=== PATIENT | male | born 1985 | race African-American/Black ===

== ENCOUNTER 2017-05-18 17:52 | Emergency (ER) | payer BC ==
[~2017-05-18] VITALS: Ht 182.9 cm; Wt 91.5 kg
[2017-05-18 18:02] VITALS: Ht 182.9 cm; Wt 91.5 kg
--- NOTE | 2017-05-18 18:38 | ERD ---
ER Documentation Chief Complaint Date/Time DATE: 05/18/17 TIME: 18:35 Chief Complaint LEFT SHOULDER PAIN DUE TO STUNT ACCIDENT, DIRECT FALL ONTO LATERAL SIDE HPI This a 32-year-old male who presents emergency department today complaining of left shoulder pain that started 3 days ago. Patient states that he "tweaked his shoulder at that time. 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 States that today he went back to finish the sequence and he went to block someone put his arm out when he felt pain. States he has a previous history of injury to the shoulder and landing on his shoulder. States he took ibuprofen for the pain but has pain with movement. States he does not have a primary care doctor.States he would like an MRI. ROS All systems reviewed and are negative except as per history of present illness. Medications Home Meds Active Scripts Naproxen* (Naprosyn*) 500 Mg Tablet, 500 MG PO BID Y for PAIN AND/OR INFLAMMATION, #30 TAB Prov:SUNITA QURESHI PA-C 05/18/17 Allergies Allergies: Coded Allergies: No Known Allergy (Unverified , 05/18/17) Physical Exam Vitals Vital Signs Date Time Temp Pulse Resp B/P Pulse Ox O2 Delivery O2 Flow Rate FiO2 05/18/17 18:02 98.9 79 20 129/85 98 Physical Exam Const: NAD Head: Atraumatic Eyes: Normal Conjunctiva ENT: Normal External Ears, Nose and Mouth. Neck: Full range of motion..~ No meningismus. Resp: Clear to auscultation bilaterally Cardio: Regular rate and rhythm, no murmurs Abd: Soft, non tender, non distended. Normal bowel sounds Skin: No petechiae or rashes Back: No midline or flank tenderness Ext: Left shoulder with no obvious deformity. No effusion. No ecchymosis. Diffusely tender to palpation. Full active range of motion at elbow and wrist. Nontender humerus. Non tender clavicle. Pulses 2+. Distal neurovascularly intact. Neur: Awake and alert Psych: Normal Mood and Affect Results 24 hrs DIAGNOSTIC IMAGING REPORT Patient: TERRELL TAYLOR : 1985 Age: 32 Sex: M MR #: [id number] DOS: 05/18/17 0000 Ordering MD: SUNITA QURESHI PA-C Location: [facility] Room/Bed: PROCEDURE: XR left shoulder. CLINICAL INDICATION: Trauma, fall, pain TECHNIQUE: 3 views of the left shoulder were performed. COMPARISON: None. FINDINGS: There is normal osseous mineralization and alignment. No acute fracture or osseous lesion is identified. There are normal joints without evidence of arthritis or dislocation. The soft tissues are unremarkable. IMPRESSION: Unremarkable left shoulder. RPTAT: HJES .Chris Muñoz MD, MD Date Time Electronically viewed and signed by .Chris Muñoz MD, on 05/18/2017 20:00 .S/ CC: SUNITA QURESHI PA-C Procedures/MDM This a 32-year-old male presents the emergency department today complaining of left shoulder pain that started 2 days ago. 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 Pain has persisted today and patient states that he would like an MRI and called the hospital to find out if we did do these MRIs and was told that we did. I did explain her procedures here in the emergency department and explained to him that I would be happy to take an x-ray for him but that he may follow-up with an rheumatology specialist for further evaluation and management should he need an MRI. Patient was understanding and agreed to have the x-rays done. Per the radiology report images of the left shoulder are unremarkable. Low suspicion for acute fracture dislocation. It explained to the patient that he has any problem with his labrum or rotator cuff pathology that he would need further evaluation by an rheumatology specialist. Patient is given a list of referral information. Patient was already in a sling and he declined pain medication here in the emergency department. He will be given a prescription for Naprosyn. I did give him a copy of his reports and gave him referral information for rheumatology specialist. Patient does have a PPO. At this time the patient is stable for discharge and outpatient management. Patient should follow up with their PCP in the next 1-2 days. They may return to the emergency department sooner for any persistent or worsening of symptoms. Patient understood and agreed with the plan. Departure Diagnosis: Primary Impression: Shoulder injury Encounter type: initial encounter Laterality: left Qualified Code: S49.92XA - Injury of left shoulder, initial encounter Condition: SUNITA Zuñiga PA-C May 18, 2017 18:38
--- NOTE | 2017-05-18 20:00 | RADRPT ---
PROCEDURE: XR left shoulder. CLINICAL INDICATION: Trauma, fall, pain TECHNIQUE: 3 views of the left shoulder were performed. COMPARISON: None. FINDINGS: There is normal osseous mineralization and alignment. No acute fracture or osseous lesion is identified. There are normal joints without evidence of arthritis or dislocation. The soft tissues are unremarkable. IMPRESSION: Unremarkable left shoulder. RPTAT: HJES .Chris Muñoz MD, Date Time Electronically viewed and signed by .Chris Muñoz MD, on 05/18/2017 20:00 .S/
[2017-05-18] MEDS ORDERED: NAPR-260 PO (20:08)
[2017-05-18 20:20] VITALS: BP 129/85; PULSE 71; RESP 20
== END 2017-05-18 20:21 | disposition home or self-care (01) ==
LOC: FTE 17:52
DX: S49.92XA Unspecified injury of left shoulder and upper arm, initial encounter (principal); W18.39XA Other fall on same level, initial encounter; Y92.9 Unspecified place or not applicable
CPT/HCPCS: 73030